=== PATIENT | male | born 2000 | race Caucasian/White ===

== ENCOUNTER 2023-02-08 08:48 | Emergency (ER) | payer OTHER, BC ==
[~2023-02-08] VITALS: Ht 185.4 cm; Wt 72.6 kg
[~2023-02-08 08:48] MED LIST: AMOX50SU PO; ANTOXYBENA OT; MULTCH
[2023-02-08 08:57] VITALS: BP 131/75
== END 2023-02-08 14:26 | disposition home or self-care (01) ==
LOC: ER 08:48
DX: S16.1XXA Strain of muscle, fascia and tendon at neck level, initial encounter (principal); V43.52XA Car driver injured in collision with other type car in traffic accident, initial encounter
CPT/HCPCS: 99283